=== PATIENT | male | born 1950 | race Caucasian/White ===

== ENCOUNTER 2016-11-05 08:24 | Inpatient (IN) | payer MEDICARE, BC ==
[~2016-11-05] VITALS: Ht 157.5 cm; Wt 76.2 kg
--- NOTE | 2016-11-05 08:31 | NUR ---
SOB THIS AM X 1 HOUR FABRIC INSPECTOR WHILE DOING MORNING WALK. PLACED ON MONITOR. AWAITING MD ORDER
[2016-11-05] MEDS ORDERED: ALBUTEROL FS 2.5 MG/3 ML VIAL.NEB ONE (08:52)
[2016-11-05 08:59] LABS: BASOPHILS % (AUTO) 0.4 % (0.0-2.0); EOSINOPHILS # (AUTO) 0.1 /CMM (0.0-0.7); EOSINOPHILS % (AUTO) 1.3 % (0.0-6.0); HEMATOCRIT 44 % (39-51); HEMOGLOBIN 15.3 g/dL (13.5-17.5); LYMPHOCYTES # (AUTO) 1.7 /CMM (0.8-4.8); MEAN CORPUSCULAR HEMOGLOBIN 32 PG (26.0-33.0); MEAN CORPUSCULAR HGB CONC 35 g/dl (31.0-36.0); MEAN CORPUSCULAR VOLUME 92 fL (80-96); MONOCYTES # (AUTO) 0.8 /CMM (0.1-1.30); MONOCYTES % (AUTO) 8.6 % (2.0-12.0); NEUTROPHILS # (AUTO) 6.9 /CMM (1.8-8.9); NEUTROPHILS % (AUTO) 71.7 % (43.0-81.0); PLATELET COUNT (AUTO) 282 /CMM (150-450); RDW COEFFICIENT OF VARIATION 12.6 (11.5-15.0); RED BLOOD CELL COUNT(AUTO) 4.78 MIL/uL (4.5-6.0); WHITE BLOOD COUNT (AUTO) 9.6 K/uL (4.3-11.0)
[2016-11-05] MEDS ORDERED: ALBUTEROL FS 2.5 MG/3 ML VIAL.NEB NEB ONE (09:00)
[2016-11-05 09:07] LABS: CALCIUM, SERUM 8.5 mg/dL (8.5-10.1); POTASSIUM 4.8 mmol/L (3.5-5.1)
[2016-11-05 09:33] LABS: TROPONIN I 0.198 ng/mL (0.00-0.056)
--- NOTE | 2016-11-05 10:52 | NUR ---
309-[address] DM FREED. DX GAVE REPORT TO OLIVA GONZALEZ
[2016-11-05] MEDS ORDERED: FENO145T20 PO (10:58)
[2016-11-05] MEDS ORDERED: POTA10TA15 PO (10:58)
[2016-11-05] MEDS ORDERED: HYDR25TA4 PO (10:58)
[2016-11-05] MEDS ORDERED: FELO10TA3 PO (10:58)
[2016-11-05] MEDS ORDERED: PROP60TA6 PO (10:58)
[2016-11-05] MEDS ORDERED: ZOLP6.252 PO (10:58)
[2016-11-05] MEDS ORDERED: HYDROCODONE/APAP 5/325MG 1 EACH TABLET PO PRN (11:00)
[2016-11-05] MEDS ORDERED: MAG HYDROX/AL HYDROX/SIMETH 30 ML UDC PO PRN (11:00)
[2016-11-05] MEDS ORDERED: ONDANSETRON HCL/PF 4 MG/2 ML VIAL IVP PRN (11:00)
[2016-11-05] MEDS ORDERED: MAGNESIUM HYDROXIDE 30 ML UDC PO PRN (11:00)
[2016-11-05] MEDS ORDERED: NITROGLYCERIN 0.4 MG/TAB BOTTLE SL ONE (11:00)
[2016-11-05] MEDS ORDERED: ACETAMINOPHEN 325 MG TABLET PO PRN (11:00)
[2016-11-05] MEDS ORDERED: FUROSEMIDE 40 MG/4 ML VIAL IV SCH (11:00)
[2016-11-05] MEDS ORDERED: NITROGLYCERIN 0.4 MG/TAB BOTTLE SL PRN (11:00)
[2016-11-05] MEDS ORDERED: ASPIRIN 325 MG TABLET PO ONE (11:00)
[2016-11-05] MEDS ORDERED: MORPHINE SULFATE INJ 2 MG/ML DISP.SYRIN IV PRN (11:00)
--- NOTE | 2016-11-05 11:01 | NUR ---
GAVE REPORT TO [facility] ROOM 309-[address] CHAIDEZ. ADMITTING DX NSTEMI. TRANSFER VIA ACLS PROTOCOL
[2016-11-05] MEDS ORDERED: ASPIRIN 325 MG TABLET ONE (11:06)
[2016-11-05] MEDS ORDERED: NITROGLYCERIN 0.4 MG/TAB BOTTLE ONE (11:06)
[2016-11-05 12:00] VITALS: BP 133/76
--- NOTE | 2016-11-05 12:15 | NUR ---
SALES SUPERVISOR NOTES RECEIVED FROM ER ALERT, ORIENTED X3 NO SOB OR ACUTE DISTRESS NOTED. DENIES ANY CHEST PAIN OR SOB. ORIENTED TO ROOM. CALL LIGHT WITHIN REACH. BED IN LOW LOCKED POSITING. PERIPHERAL IV INTACT PATENT ON LEFT AC. PATIENT PLACED ON TELE MONITORING. SKIN INTACT WILL CONTINUE TO MONITOR.
[2016-11-05] MEDS: ENOXAPARIN SODIUM 80 MG/0.8 ML DISP.SYRIN SQ SCH (15:48)
[2016-11-05 16:00] VITALS: BP 140/74
--- NOTE | 2016-11-05 16:00 | NUR ---
CLINICAL EDITOR NOTES DR. SEO NOTIFIED OF ELEVATED TOPONIN LEVEL NO NEW ORDERS NOTED. CONTINUE TO MONITOR. PATIENT ASYMPTOMATIC. DENIES ANY CHEST PAIN OR SOB. WILL CONTINUE TO MONITOR.
[2016-11-05] MEDS ORDERED: ZOLPIDEM TARTRATE 5 MG TABLET PO PRN (17:30)
--- NOTE | 2016-11-05 18:59 | NUR ---
MANAGER CATH LAB NOTES PATIENT IN BED RESTING NO SOB OR ACUTE DISTRESS NOTED. ALL DUE MEDICATIONS ADMINISTERED. ALL NEEDS MET. PATIENT DENIES ANY CHEST PAIN. WILL ENDORSE TO PM SHIFT A[place].
--- NOTE | 2016-11-05 19:00 | NUR ---
MS RN NOTES RECEIVE PT RESTING IN BED, A/OX 3. NO S/S OF DISTRESS OR SOB. SAFETY MEASURES IN PLACE, ON LOW BED TO ENSURE SAFETY. CALL LIGHT WITHIN REACH. WILL CONTINUE TO MONITOR.
[2016-11-05 20:00] VITALS: BP 129/76
[2016-11-05] MEDS: CARVEDILOL 6.25 MG TABLET PO SCH (21:04)
[2016-11-05] MEDS: ATORVASTATIN 40 MG TABLET PO SCH (21:04)
[2016-11-05] MEDS: ZOLPIDEM TARTRATE 5 MG TABLET PO PRN (21:05)
[2016-11-05] MEDS ORDERED: SIMVASTATIN 20 MG TABLET PO SCH (22:00)
[2016-11-06] VITALS (8 sets, daily range): BP systolic 105–183; BP diastolic 59–98
[2016-11-06] MEDS: ENOXAPARIN SODIUM 80 MG/0.8 ML DISP.SYRIN SQ SCH ×2 (02:06→15:26)
[2016-11-06 06:28] LABS: BASOPHILS % (AUTO) 0.6 % (0.0-2.0); EOSINOPHILS # (AUTO) 0.1 /CMM (0.0-0.7); EOSINOPHILS % (AUTO) 1.8 % (0.0-6.0); HEMATOCRIT 45 % (39-51); HEMOGLOBIN 15.7 g/dL (13.5-17.5); LYMPHOCYTES # (AUTO) 2.1 /CMM (0.8-4.8); LYMPHOCYTES % (AUTO) 26.7 % (20.0-44.0); MEAN CORPUSCULAR HEMOGLOBIN 32 PG (26.0-33.0); MEAN CORPUSCULAR HGB CONC 35 g/dl (31.0-36.0); MEAN CORPUSCULAR VOLUME 92 fL (80-96); MONOCYTES # (AUTO) 0.9 /CMM (0.1-1.30); MONOCYTES % (AUTO) 11.5 % (2.0-12.0); NEUTROPHILS # (AUTO) 4.6 /CMM (1.8-8.9); NEUTROPHILS % (AUTO) 59.4 % (43.0-81.0); PLATELET COUNT (AUTO) 260 /CMM (150-450); RDW COEFFICIENT OF VARIATION 12.4 (11.5-15.0); RED BLOOD CELL COUNT(AUTO) 4.89 MIL/uL (4.5-6.0); WHITE BLOOD COUNT (AUTO) 7.8 K/uL (4.3-11.0)
--- NOTE | 2016-11-06 06:38 | NUR ---
TECHNICAL INSTRUCTOR COURSE DEVELOPER CLOSING NOTES PATIENT COMFORTABLY ASLEEP AND EASILY AWAKEN, HEAD OF BED ELEVATED. TOLERATING ROOM AIR 02 SAT AT 98% ATTACH TO TELE MONITOR, LAC G 18 PATENT AND INTACT WITH NO S/S OF INFILTRATION NOTED. APPEARS NOT IN DISTRESS. RESPIRATIONS EVEN AND UNLABORED, FREQUENT VISUAL CHECK DONE FOR SAFETY EVERY 2 HOURS. NURSING CARE RENDERED, NEEDS ATTENDED AND ANTICIPATED, KEPT CLEAN AND DRY AND COMFORTABLE, GOOD SKIN CARE PROVIDED. OFFLOAD AT ALL TIMES. NO COMPLAINS OF CHEST PAIN THROUGHOUT THE 12 SHIFT. SAFE HAZARD FREE ENVIRONMENT PROVIDED. CALL LIGHT WITHIN EASY TO REACH, ON LOW BED AT ALL TIMES TO ENSURE SAFETY, WILL ENDORSE TO THE NEXT SHIFT CONTINUE PLAN OF CARE
[2016-11-06 06:55] LABS: CALCIUM, SERUM 8.8 mg/dL (8.5-10.1); CREATININE 0.9 mg/dL (0.6-1.3); POTASSIUM 3.6 mmol/L (3.5-5.1)
[2016-11-06 07:06] LABS: THYROID STIMULATING HORMONE 1.618 uIU/mL (0.358-3.74)
--- NOTE | 2016-11-06 07:30 | NUR ---
WATER RESOURCE AGENT notes Received patient in bed, awake A/O x4. On RA, tolerating well, no SOB. On tele monitor Sinus Rhythm HR 68. Patient is ambulatory, denies chest pain. NO c/o pain or any discomfort. Call light within reach. Will cont to monitor.
[2016-11-06] MEDS: PANTOPRAZOLE 40 MG TABLET.DR PO SCH (08:22)
[2016-11-06] MEDS: ASPIRIN 325 MG TABLET PO SCH (08:22)
[2016-11-06] MEDS: CARVEDILOL 6.25 MG TABLET PO SCH ×2 (08:22→21:32)
[2016-11-06] MEDS ORDERED: ASPIRIN EC 81 MG TABLET.DR PO SCH (09:00)
--- NOTE | 2016-11-06 18:43 | NUR ---
DIESEL POWERPLANT MECHANIC HELPER notes Patient in bed, not in distress. On Tele monitor Sinus Rhythm HR 78, no episode of SOB during the shift. On room air, tolerating well. IV in left AC g18 patent and intact, flushes well. No c/o pain or any discomfort. Call light within reach. Patient will be NPO after midnight for cardiac cath in AM. Will endorse to sales host RN for continuity of care.
--- NOTE | 2016-11-06 19:00 | NUR ---
MS RN OPENING NOTES RECEIVE PT RESTING IN BED NOW, A/OX 4. NO S/S OF DISTRESS OR SOB. SAFETY MEASURES IN PLACE, ON LOW BED TO ENSURE SAFETY. CALL LIGHT WITHIN REACH. WILL CONTINUE TO MONITOR.
--- NOTE | 2016-11-06 20:00 | NUR ---
HEAD GRINDER NOTES RELAYED BP OF THE PATIENT TO THE SALES CONTRACTS ANALYST MD DR. QUEEN WHILE HE'S DOING ROUNDS. PER MD HE WILL INCREASE HIS BP MEDS, PATIENT NOT IN DISTRESS, WILL CONT TO MONITOR
[2016-11-06] MEDS ORDERED: CARVEDILOL 12.5 MG TABLET ONE (21:24)
[2016-11-06] MEDS: ZOLPIDEM TARTRATE 5 MG TABLET PO PRN (21:25)
[2016-11-06] MEDS: ATORVASTATIN 40 MG TABLET PO SCH (21:26)
[2016-11-07] VITALS: BP 160/94
[2016-11-07] MEDS ORDERED: IV NS 0.9% 1,000 ML IV PRN
[2016-11-07 04:00] VITALS: BP 150/91
--- NOTE | 2016-11-07 04:40 | NUR ---
CHARGE NURSE CALLED DIRECTOR OF FINANCIAL AID OF VP AND CONFIRMED PT APPOINTMENT FOR PROCEDURE
--- NOTE | 2016-11-07 06:34 | NUR ---
RETAIL BRANCH MANAGER CLOSING NOTES PATIENT AWAKE IN BED READING BOOKS, WITH AT BEDSIDE AWAITING FOR TRANSPORTATION (AMBULANCE)PATIENT WILL BE GOING TO [facility] FOR CARDIAC CATH SCHEDULED AT 1030 ASSEMBLER FLUORESCENT LIGHTS TIME AT 0730 PATIENT MAINTAINS NPO AT MIDNIGHT PER MD ORDER, RESPIRATIONS EVEN AND UNLABORED, TOLERATING ROOM AIR 02 SAT 100% LAC 18 G PATENT AND INTACT WITH NO S/S OF INFILTRATION NOTED. APPEARS NOT IN DISTRESS. IN STABLE CONDITION, NO COMPLAINS OF PAIN AT THIS TIME. FREQUENT VISUAL CHECK DONE FOR SAFETY EVERY 2 HOURS. NURSING CARE RENDERED, NEEDS ATTENDED AND ANTICIPATED, KEPT CLEAN AND DRY AND COMFORTABLE, GOOD SKIN CARE PROVIDED. OFFLOAD AT ALL TIMES. SAFE HAZARD FREE ENVIRONMENT PROVIDED. CALL LIGHT WITHIN EASY TO REACH, ON LOW BED AT ALL TIMES TO ENSURE SAFETY, WILL ENDORSE TO THE NEXT SHIFT CONTINUE PLAN OF CARE. ATTACH TO TELE MONITOR.
--- NOTE | 2016-11-07 07:20 | NUR ---
FINANCIAL QUANTITATIVE ANALYST notes Patient in bed, A/O x3. On NPO status, for cardiac cath today. IV in left AC g18 patent and intact, IV NS infusing at 75ml/hr, tolerating well. On tele monitor Sinus Rhythm HR 71, no c/o pain or any discomfort. Pneumonia vaccine updated, per patient last received was on 2015. Call light within reach. Will cont to monitor.
[2016-11-07 08:00] VITALS: BP 164/87
[2016-11-07] MEDS: PANTOPRAZOLE 40 MG TABLET.DR PO SCH (08:22)
[2016-11-07] MEDS: ASPIRIN 325 MG TABLET PO SCH (08:22)
[2016-11-07] MEDS: CARVEDILOL 6.25 MG TABLET PO SCH (08:22)
--- NOTE | 2016-11-07 08:31 | NUR ---
Patient transferred to [facility] for cardiac cath. Patient left hosp in stable condition via ambulance accompanied by his . Belongings send with the patient. Patient is seen by Dr. Suggs, Cardio today prior transferred to [facility].
[2016-11-07] MEDS ORDERED: LOSARTAN POTASSIUM 25 MG TABLET PO SCH (09:00)
--- NOTE | 2016-11-07 12:48 | NUR ---
Received phone call from LISA Bauer [facility]. Patient will be transferred back to [facility], per LISA Bauer she informed Dr. Suggs and patient will be discharged today from [facility]. Charge Nurse informed.
[2016-11-07 14:27] VITALS: BP 134/81
--- NOTE | 2016-11-07 14:33 | NUR ---
Patient is back from [facility]. V/S taken and recorded, in stable condition. Made comfortable in bed, per patient he had lunch already at the [facility]. after the procedure. Notified Dr. Rocco Haas.
--- NOTE | 2016-11-07 15:37 | NUR ---
Patient to be discharged home as ordered.
--- NOTE | 2016-11-07 16:15 | NUR ---
MS RN Discharged Patient has been cleared for discharged home by MD. Skin intact, voided without difficulty. No SOB. Discharge instruction given to the patient, verbalized understanding. Patient is aware to follow up with Primary Doctor and Cardio in 1 week. IV in left hand removed, gauze applied, no bleeding noted. Belongings send with the patient upon DC. Patient left hosp in stable condition via private car, accompanied by his .
== END 2016-11-07 16:15 | disposition home or self-care (01) | DRG 280 ==
LOC: ER 08:26 → TELE 11:35 → UNDODISIN 11-07 08:25
PROC: 4A023N7 Measurement of Cardiac Sampling and Pressure, Left Heart, Percutaneous Approach (ICD-10-PCS; principal; 2016-11-07)
PROC: B201YZZ Plain Radiography of Multiple Coronary Arteries using Other Contrast (ICD-10-PCS; 2016-11-07)
DX: I21.4 Non-ST elevation (NSTEMI) myocardial infarction (principal); I50.31 Acute diastolic (congestive) heart failure; I11.0 Hypertensive heart disease with heart failure; E11.9 Type 2 diabetes mellitus without complications; E78.5 Hyperlipidemia, unspecified; Z87.891 Personal history of nicotine dependence
CPT/HCPCS: 36415; 71010-TC; 80048-TC; 80061-TC; 83735-TC; 83880; 84100-TC; 84443-TC; 84484-TC; 85025-TC; 87081-TC; 93307-TC; 93970-TC; A4606; J1650; J1940; J7030; Z7610